=== PATIENT | female | born 1940 | race Caucasian/White ===

== ENCOUNTER → 2023-02-24 | Outpatient (CLI) | payer MEDICARE, OTHER, SELFPAY ==
--- NOTE | 2023-02-24 | IMM_PTH ---
PATIENT: SUZAN DE LA TORRE LOC: [facility] U#:[id number] AGE/SX: 82/F ROOM: RE02/24/[address]: Dr. Felix Fernandez MD : 1940 BED: DIS: 02/24/2023 SPEC #: [id number] RECD: 02/25/23 14:49 STATUS: BOLA REQ #: [id number] MAYRA: 02/24/23 00:[address]: Felix Fernandez DEPT: IMMUNOHISTOCHEMISTRY RECD BY: Shanae Alvarez Tissues: Left breast, NOS Procedures: CALPONIN-1 (add) CD31 (add) CK5-6 (add) CK8 (add) CRUZ-2 (add) E-CAD (add) HER2 LISA (add) KI-67 (add) P53 (add) MO (add) IN SITU HYBRIDIZATION FACTOR VIII (add) P40 (add) ER (initial) PHYSICIAN & INSTITUTION [address] [address] SPECIMEN INFORMATION: Tissue Source: Left breast mass Clinical Info: Left breast mass Specimen Number: [id number] CPT code: 94936, 10892 x9, 93502 x3, 53715 x2 METHODOLOGY: Deparaffinized sections of prefer/formalin-fixed tissue or PAP/DQ stained slides are incubated with monoclonal/polyclonal antibodies/oligonucleotide probes. Localization is made via biotin free immunoperoxidase method. Appropriate controls are performed and reacted as expected. Results on target cell population are indicated in the following table: RESULTS: ANTIBODY / CLONE RESULT P53 (DO-7) negative Ki-67 (30-9) positive, 80% CK8 (53ldtjR98) positive CK5-6 (D5 & 1684) negative Calponin-1 (WY900L) negative P40 (BC28) negative E-Cad (ECH-6) negative CRUZ-2 (SP21) positive Factor VIII (R Ag) negative CD31 (MESFIN/70A) negative MORPHOMETRIC ANALYSIS ER (clone 6F11) >95%, strong intensity MO (clone 16/1E2) >95%, strong intensity Her-2Neu (clone CB11) 1-2+ The prognostic test for HER2 is performed on formalin-fixed paraffin embedded tissue. A 3+ (positive) staining pattern is defined as intense, homogeneous, complete, circumferential membranous staining in >10% of contiguous tumor cells. A similar weak (2+) staining pattern is interpreted as equivocal. GABRIEL follow-up testing is recommended for all equivocal cases. Positivity/negativity for ER/MO is reported if > or < 1% of the tumor cells are immuno- reactive, respectively. The ASCO/CAP criteria is used for scoring. Reference: Journal of Clinical Oncology, 2013; 31:7777-4703 & 2010; 16:9993-6007. Duration of fixation: 10.5 Hrs; Sample Adequate: Yes. These assays have not been validated on decalcified tissues. Results should be interpreted with caution given the likelihood of false negativity on decalcified specimens. These tests were developed and their performance characteristics determined by [facility]. They may not have been cleared or approved by the U.[place]. Food and Drug Administration. The FDA has determined that such clearance or approval is not necessary. The above immunohistochemical/dualISH markers are ordered and reviewed by the Pathologist. INTERPRETATION: Left breast mass, core biopsy: Invasive lobular carcinoma, nuclear grade 2. Positive for estrogen receptors (favorable prognostic indicator). Positive for progesterone receptors (favorable prognostic indicator). Equivocal for overexpression of [id number]. AM:norm 02/26/2023 ADDENDUM ADDENDUM ADDENDUM ADDENDUM ADDENDUM ADDENDUM ADDENDUM ADDENDUM ADDENDUM ADDENDUM ADDENDUM ADDENDUM ADDENDUM ADDENDUM ADDENDUM ADDENDUM ADDENDUM ADDENDUM ADDENDUM ADDENDUM ADDENDUM ADDENDUM 03/28/2023 13:07 ADDENDUM 03/28/2023 13:07 ADDENDUM 03/28/2023 13:07 ADDENDUM 03/28/2023 13:07 ADDENDUM 03/28/2023 13:07 IN SITU HYBRIDIZATION (GABRIEL) FOR HER2 Interpretation: Negative / Not Amplified HER2 : CEP-17 Ratio: 1.15 Average HER2 Signal: 2.95 Average CEP-17 Signal: 2.55 Number of Tumor Cells Scanned: 50 Interpretative Information: The INFORM HER2 Dual GABRIEL DNA Probe Cocktail assay is performed on formalin-fixed paraffin embedded tissue and determines HER2 gene status by detecting HER2 copies via silver in situ hybridization (SISH) and Chromosome 17 copies via chromogenic red in situ hybridization on tumor cells. A minimum of 20 cells representing > 10% of contiguous and homogeneous invasive tumor cells were analyzed. HER2 gene status is classified as Non-amplified (HER2/Chr17 ratio < 2.0) or Amplified (HER2/Chr17 ratio greater than or equal to 2.0). If the resulting HER2/Chr17 ratio falls within 1.8 - 2.2 (Borderline), retesting by FISH is recommended. Reference: Ralph AC, Alyssa BENITEZH, Wil DG, et al: Recommendations for Human Epidermal Growth Factor Receptor 2 Testing in Breast Cancer: [place] [employer] / [employer] [place] [employer] Clinical Practice Guideline Update. J Clin Oncol 31:1035-1758, 2013. SJ:norm 03/28/2023
--- NOTE | 2023-02-24 09:00 | BRBX_PTH ---
PATIENT: SUZAN DE LA TORRE LOC: [facility] U#:[id number] AGE/SX: 82/F ROOM: RE02/24/[address]: Dr. Felix Fernandez MD : 1940 BED: DIS: 02/24/2023 SPEC #: [id number] RECD: 02/24/23 10:21 STATUS: BOLA JACOBTj #: [id number] MAYRA: 02/24/23 09:[address]: Felix Fernandez DEPT: SURGICAL PATHOLOGY RECD BY: Dilcia Castro Tissues: Left breast, NOS Procedures: Surgery Specimen Level IV HEADER OPERATION: Biopsy of mass left breast PRE-OP DIAGNOSIS: Left breast mass TISSUE SUBMITTED: Left breast mass tissue MICROSCOPIC DIAGNOSIS Left breast mass, core biopsy: Invasive lobular carcinoma with the following characteristics: Nuclear grade ? 2/3 Maximal length ? 6 millimeters. See comment. AM:norm 02/25/2023 COMMENT Immunohistochemistry ([id number]) supports the above diagnosis. The carcinoma involves the superficial dermis and deep dermis and focally shows pagetoid involvement of skin. Clinical correlation is suggested. Case has been reviewed in consultation with Dr. Mckeon who concurs with the above diagnosis. IDC:[id number] MICROSCOPIC DESCRIPTION Slides are reviewed. GROSS DESCRIPTION Received in fixative is one container labeled with the patient's name and designated left breast. The specimen consists of multiple elongated fragments of iraheta-yellow fibroadipose tissue that in aggregate measure 2.5 x 0.5 x 0.1 cm. The entire specimen is submitted in one cassette. / SJ:rg 02/24/2023 TC:0 CPT: 78717
== END | disposition home or self-care (01) ==
LOC: LABSPEC 10:33
PROVIDERS: Visit Provider Surgery
DX: C50.912 Malignant neoplasm of unspecified site of left female breast (principal)
CPT/HCPCS: 88305; 88341; 88342; 88368

== ENCOUNTER → 2024-04-19 | Outpatient (CLI) | payer MEDICARE, OTHER, SELFPAY ==
--- NOTE | 2024-04-19 08:48 | NM_ITS ---
CLINICAL: 84-year-old female with history of primary breast carcinoma. WHOLE BODY 99m Tc MDP RADIONUCLIDE BONE SCINTIGRAPHY COMPARISON: None available FINDINGS: Following the intravenous administration of 25.6 mCi of 99m Tc MDP, whole body bone images reveal: 1. Increased tracer uptake is defined in the lateral femoral compartment of the left knee. 2 enhanced radiopharmaceutical concentration is noted in the medial tibial compartments of both knees, the sternoclavicular compartments of both shoulders, the mid cervical spine posteriorly on the left and right 11th thoracic vertebra posteriorly on the left, fourth and fifth lumbar vertebra, the right ankle, the left mid and forefoot, the bilateral wrists and both hands. 3. The remaining skeletal structures are scintigraphically unremarkable with normal-appearing renal images and urinary bladder activity identified. NM/Bone Scan Whole Body IMPRESSION: 1. Facilitated uptake noted in the lateral femoral compartment of the left knee-distal left lateral femoral metaphysis likely represents a component of degenerative arthropathy. Plain film radiography correlation is recommended. 2. 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 Electronically Signed: Russ Hernández DO at 10:00 EDT ,
== END | disposition home or self-care (01) ==
LOC: NM 08:44
PROVIDERS: PCP Internal Medicine Infectious Disease; Referring Provider Internal Medicine Hematology & Oncology; Visit Provider Internal Medicine Hematology & Oncology
DX: C50.811 Malignant neoplasm of overlapping sites of right female breast (principal); C79.51 Secondary malignant neoplasm of bone; C50.812 Malignant neoplasm of overlapping sites of left female breast; Z17.0 Estrogen receptor positive status [ER+]
CPT/HCPCS: 78306; A9503

== ENCOUNTER → 2025-08-29 | Outpatient (CLI) | payer MEDICARE, OTHER, SELFPAY ==
--- NOTE | 2025-08-29 08:56 | NM_ITS ---
PROCEDURE: BONE SCAN WHOLE BODY 08/29/2025 REASON FOR EXAM: METS BREAST CA F/U TECHNIQUE: Procedure Code: NMBO Modality: NM Procedure: BONE SCAN WHOLE BODY Whole-body bone scan with anterior and posterior views. Imaging at 3.5 hours. RADIOPHARMACEUTICAL: 25.1 mCi Technetium-99m MDP IV COMPARISON: April 19, 2024. FINDINGS: Bones: Once again, focal uptake is seen along the lateral compartment of the left knee. Focal uptake also seen along the left side of the L4 and L5 vertebrae as well as the medial aspect of the left and right 11th thoracic vertebrae and left rib. Findings are in keeping with degenerative changes. No evidence of bony metastasis. Kidneys: Unremarkable. NM/Bone Scan Whole Body IMPRESSION: Stable examination. No evidence of bony metastasis. Reading Location: [place] [id number]
== END | disposition home or self-care (01) ==
LOC: NM 08:55
PROVIDERS: PCP Internal Medicine Infectious Disease; Referring Provider Internal Medicine Hematology & Oncology; Visit Provider Internal Medicine Hematology & Oncology
DX: C50.811 Malignant neoplasm of overlapping sites of right female breast (principal); C50.812 Malignant neoplasm of overlapping sites of left female breast; Z17.0 Estrogen receptor positive status [ER+]; Z79.51 Long term (current) use of inhaled steroids
CPT/HCPCS: 78306; A9503